=== PATIENT | female | born 1995 | race Caucasian/White ===

== ENCOUNTER 2018-07-16 02:49 | Inpatient (IN) | payer MEDICAID ==
[2018-07-16] MEDS ORDERED: RINGERS SOLUTION,LACTATED 1,000 ML IV PRN (03:04)
[2018-07-16] MEDS ORDERED: OXYTOCIN/NORMAL SALINE 20 UNIT/1,000 ML RTUINJ ONE (03:05)
[2018-07-16] MEDS ORDERED: LIDOCAINE 1% INJ-PF (10 MG/ML) 30 ML SDV ONE (03:05)
[2018-07-16] MEDS ORDERED: MISOPROSTOL 0.2 MG TABLET ONE (03:05)
--- NOTE | 2018-07-16 03:11 | Admission Physical ---
Datetime Report Generated by CPN: 07/16/2018 03:11 CURRENT ADMISSION Chief Complaint: Uterine Contractions Indication for Induction: Not Applicable Admit Impression : Term, Intrauterine ; Active Labor Admit Plan: Admit to Unit; Initiate Labor Protocol ALLERGIES Medication Allergies: No Known Allergies (07/16/2018) OBSTETRICAL HISTORY EDC: 07/16/2018 00:00 : 3 Para: 2 PHYSICAL EXAM General: Normal HEENT: Normal Neurologic: Normal Thyroid: Normal Heart: Normal Lungs: Normal Breast: Normal Back: Normal Abdomen: Normal Genitourinary Exam: Normal Extremities: Normal DTRs: Normal Pelvic Type: Adequate Vital Signs: Reviewed; Within Normal Limits VAGINAL EXAM Dilatation: 9 Effacement: 100 Station: 0 MEMBRANES Pooling: Negative Membranes: Intact FETUS A EGA: 40.0 Monitoring: External US FHR- Baseline: 120 Variability: Moderate 6-25bpm Accelerations: 15X15 Decelerations: None FHR Category: Category I Estimated Weight (gm): 3600 Presentation: Vertex INFORMED CONSENT Signature: with User ID: [email or web address]
[2018-07-16 03:30] LABS: ABSOLUTE EOSINOPHILS # (AUTO) 0.1 10^3/uL (0.0-0.6); ABSOLUTE MONOCYTES (AUTO) 0.5 10^3/uL (0.1-1.4); ABSOLUTE NEUT (AUTO) 4.7 10^3/uL (1.7-8.2); BASOPHILS % (AUTO) 0.4 % (0-2); EOSINOPHILS % (AUTO) 1.5 % (0-6); HEMOGLOBIN 11.7 g/dL (12.0-15.5); LYMPHOCYTES % (AUTO) 27.1 % (13-45); MEAN CORPUSCULAR HEMOGLOBIN 29.7 pg (27.0-33.4); MEAN CORPUSCULAR HGB CONC 33.4 g/dL (32.0-36.0); MEAN CORPUSCULAR VOLUME 89 fl (80-97); MONOCYTES % (AUTO) 7.4 % (3-13); PLATELET COUNT 156 10^3/uL (150-450); RED BLOOD COUNT 3.93 10^6/uL (3.72-5.28); RED CELL DISTRIBUTION WIDTH 15.5 % (11.5-14.0); SEGMENTED NEUTROPHILS % (AUTO) 63.6 % (42-78); TOTAL CELLS COUNTED % (AUTO) 100 %; WHITE BLOOD COUNT 7.4 10^3/uL (4.0-10.5)
[2018-07-16] MEDS ORDERED: NA PHOS,M-B/NA PHOS,DI-BA (ADULT) 133 ML ENEMA PR PRN (03:58)
[2018-07-16] MEDS ORDERED: BENZOCAINE/MENTHOL AEROSOL SPRAY 56 ML TOP PRN (03:58)
[2018-07-16] MEDS ORDERED: GLYCERIN/WITCH HAZEL LEAF 1 EACH MED..PAD TP PRN (03:58)
[2018-07-16] MEDS ORDERED: MAGNESIUM HYDROXIDE SUSP 30 ML UDCUP PO PRN (03:58)
[2018-07-16] MEDS ORDERED: MEASLES,MUMPS&RUBELLA VACC/PF 0.5 ML VIAL SUBCUT PRN (03:58)
[2018-07-16] MEDS ORDERED: DIBUCAINE 1% OINTMENT 28 GM TP PRN (03:58)
[2018-07-16] MEDS ORDERED: PROMETHAZINE HCL INJ 25 MG/1 ML VIAL IV PRN (03:58)
[2018-07-16] MEDS ORDERED: DIPH/PERTUSS(ACELL)/TETANUS VAC/PF 0.5 ML SYR (>=10YO) IM PRN (03:58)
[2018-07-16] MEDS ORDERED: ACETAMINOPHEN WITH CODEINE #3 TABLET PO PRN (03:58)
[2018-07-16] MEDS ORDERED: ACETAMINOPHEN 650 MG SUPP.RECT PR PRN (03:58)
[2018-07-16] MEDS ORDERED: PROMETHAZINE HCL 25 MG TABLET PO PRN (03:58)
[2018-07-16] MEDS ORDERED: OXYTOCIN/NORMAL SALINE 20 UNIT/1,000 ML RTUINJ IV PRN (03:58)
[2018-07-16] MEDS ORDERED: PSEUDOEPHEDRINE HCL 30 MG TABLET PO PRN (03:58)
[2018-07-16] MEDS ORDERED: DIPHENHYDRAMINE HCL 25 MG CAPSULE PO PRN (03:58)
[2018-07-16] MEDS ORDERED: PROMETHAZINE HCL 25 MG SUPP.RECT PR PRN (03:58)
[2018-07-16] MEDS ORDERED: ZOLPIDEM TARTRATE 5 MG TABLET PO PRN (03:58)
[2018-07-16 04:23] LABS: APPEARANCE,URINE SLIGHTLY-CLOUDY; BILIRUBIN,URINE NEGATIVE (NEGATIVE); COLOR,URINE YELLOW; GLUCOSE, URINE NEGATIVE (NEGATIVE); KETONES,URINE NEGATIVE (NEGATIVE); LEUKOCYTE ESTERASE,URINE NEGATIVE (NEGATIVE); NITRITE,URINE NEGATIVE (NEGATIVE); PROTEIN,URINE NEGATIVE (NEGATIVE); URINE SPECIFIC GRAVITY 1.009; UROBILINOGEN,URINE NEGATIVE mg/dL (<2.0)
[2018-07-16 04:37] LABS: URINE AMPHETAMINES SCREEN NEGATIVE; URINE BARBITURATES SCREEN NEGATIVE; URINE BENZODIAZEPINES SCREEN NEGATIVE; URINE COCAINE SCREEN NEGATIVE; URINE MARIJUANA (THC) SCREEN NEGATIVE; URINE METHADONE SCREEN NEGATIVE; URINE PHENCYCLIDINE SCREEN NEGATIVE
--- NOTE | 2018-07-16 06:20 | Delivery Summary ---
Del Sum A-C Datetime Report Generated by CPN: 07/16/2018 06:20 DELIVERY PERSONNEL DELIVERY PERSONNEL: [id number] Delivery Doctor:: Marti Limon MD Labor and Delivery Nurse:: Nemo Gould RNterrazzo layer Nurse:: Parisa Carrasquillo RN Supervisor [employer]/INFANT ROOM TEACHER: Ruthann Green, ST MATERNAL INFORMATION Delivery Anesthesia: None Medications After Delivery: Pitocin Bolus-Please Comment Meds After Delivery Comment: Pitocin 20 Units in 1000 ml NS bolused Estimated Blood Loss (ml): 100 Maternal Complications: Precipitous Labor (<3hrs) LABOR SUMMARY EDC: 07/16/2018 00:00 Attempted: No Labor Anesthesia: None LABOR INFORMATION Reason for Induction: Not Applicable Onset of Labor: 07/16/2018 02:20 Complete Dilatation: 07/16/2018 03:16 Oxytocin: N/A Group B Beta Strep: Negative Steroids Given: None Reason Steroids Not Administered: Not Applicable MEMBRANES Membranes Rupture Method: Artificial Rupture of Membranes: 07/16/2018 03:31 Length of Rupture (hr): 0.15 Amniotic Fluid Color: Clear Amniotic Fluid Amount: Small Amniotic Fluid Odor: Normal STAGES OF LABOR Stage 1 hr: 0 Stage 1 min: 56 Stage 2 hr: 0 Stage 2 min: 24 Stage 3 hr: 0 Stage 3 min: 4 Total Time in Labor hr: 1 Total Time in Labor min: 24 VAGINAL DELIVERY Episiotomy: None Laceration #1: None Laceration Extension #1: N/A Laceration Repair: Not Applicable Sponge Count Correct: N/A Sharps Count Correct: N/A CSECTION DELIVERY Primary Indication: N/A Secondary Indication: N/A CSection Incidence: N/A Labor: N/A Elective: N/A CSection Incision: N/A BABY A INFORMATION Delivery Date/Time: 07/16/2018 03:40 Method of Delivery: Vaginal Born in Route : No : N/A Forceps: N/A Vacuum Extraction: N/A Shoulder Dystocia : No PRESENTATION/POSITION BABY A Presentation: Cephalic Cephalic Presentation: Vertex Vertex Position: Left Occipital Anterior Breech Presentation: N/A PLACENTA INFORMATION BABY A Placenta Delivery Time : 07/16/2018 03:44 Placenta Method of Delivery: Spontaneous Placenta Status: Delivered SCORES BABY A Heart Rate 1 min: >100 bpm Resp Effort 1 min: Good Cry Reflex Irritability 1 min: Cough or Sneeze or Pulls Away Muscle Tone 1 min: Active Motion Color 1 min: Body [place], Extremities Blue Resuscitation Effort 1 min: Tactile Stimulation SCORE 1 MIN: 9 Heart Rate 5 min: >100 bpm Resp Effort 5 min: Good Cry Reflex Irritability 5 min: Cough or Sneeze or Pulls Away Muscle Tone 5 min: Active Motion Color 5 min: Body [place], Extremities Blue Resuscitation Effort 5 min: Tactile Stimulation SCORE 5 MIN: 9 INFANT INFORMATION BABY A Gestational Age at Delivery: 40.0 Gestational Status: Full Term- 39- 40.6 Weeks Infant Outcome : Liveborn Condition : Stable Infant Sex: Female IDENTIFICATION BABY A Verification Date/Time: 07/16/2018 04:11 ID Band Number: [id number] Mother's Name Verified: Yes Infant RN Verifying Infant: M DEBORA RN, K. Glenn RN WEIGHT/LENGTH BABY A Infant Birthweight (gm): 3585 Weight (lb): 7 Weight (oz): 14 Infant Length (in): 20.00 Infant Length (cm): 50.80 CORD INFORMATION BABY A No. Cord Vessels: 3 Nuchal Cord : N/A Cord Blood Taken: Yes-For Storage (Mom's Blood type +) Suction: None ASSESSMENT BABY A Infant Complications: None Physical Findings at Delivery: Within Normal Limits Infant Respirations: Appears Normal Skin to Skin: No Work Car Operator/ALS Called : No Care By: NDkirille RN Transferred To: Remains with Mother BABY B INFORMATION : N/A SIGNATURES Signature: with User ID: [email or web address]
[2018-07-16] MEDS: IBUPROFEN 800 MG TABLET PO SCH ×3 (11:29→21:46)
[2018-07-16] MEDS: PRENATAL VITAMIN W DHA CAPSULE PO SCH (11:30)
[2018-07-16] MEDS: FERROUS SULFATE 325 MG TABLET PO SCH ×2 (11:30→17:59)
[2018-07-16] MEDS: DOCUSATE SODIUM 100 MG CAPSULE PO SCH ×2 (11:30→17:59)
[2018-07-16] MEDS: SENNOSIDES/DOCUSATE 8.6-50 MG 1 EACH TABLET PO SCH (11:31)
[2018-07-16] MEDS: FAMOTIDINE 20 MG TABLET PO SCH ×2 (11:31→21:46)
[2018-07-16] MEDS: ACETAMINOPHEN WITH CODEINE #3 TABLET PO PRN (11:36)
[2018-07-17] MEDS: IBUPROFEN 800 MG TABLET PO SCH ×2 (05:21→13:44)
[2018-07-17 07:41] LABS: HEMATOCRIT 34.6 % (36.0-47.0); HEMOGLOBIN 11.6 g/dL (12.0-15.5); MEAN CORPUSCULAR HEMOGLOBIN 30.1 pg (27.0-33.4); MEAN CORPUSCULAR HGB CONC 33.5 g/dL (32.0-36.0); MEAN CORPUSCULAR VOLUME 90 fl (80-97); PLATELET COUNT 154 10^3/uL (150-450); RED BLOOD COUNT 3.84 10^6/uL (3.72-5.28); WHITE BLOOD COUNT 8.3 10^3/uL (4.0-10.5)
[2018-07-17] MEDS: FERROUS SULFATE 325 MG TABLET PO SCH ×2 (09:21→17:33)
[2018-07-17] MEDS: FAMOTIDINE 20 MG TABLET PO SCH (09:21)
[2018-07-17] MEDS: PRENATAL VITAMIN W DHA CAPSULE PO SCH (09:21)
[2018-07-17] MEDS: DOCUSATE SODIUM 100 MG CAPSULE PO SCH ×2 (09:21→17:33)
[2018-07-17] MEDS: SENNOSIDES/DOCUSATE 8.6-50 MG 1 EACH TABLET PO SCH (09:21)
[2018-07-17 10:04] VITALS: BP 105/68
[2018-07-17] MEDS: ACETAMINOPHEN WITH CODEINE #3 TABLET PO PRN (12:20)
--- NOTE | 2018-07-17 12:35 | PDOC DISCHARGE SUMMARY ---
Final Diagnosis Discharge Date: 07/17/18 - Final Diagnosis (1) Normal vaginal delivery Is this a current diagnosis for this admission?: Yes Discharge Data - Discharge Medication Prescriptions: Ibuprofen [Motrin 800 mg Tablet] 800 mg PO Q8HP PRN #60 tablet PRN Reason: Home Medications: Pnv No.95/Ferrous Fum/Folic AC [ Vitamin Tablet] 1 tab PO DAILY Ibuprofen [Motrin 800 mg Tablet] 800 mg PO Q8HP PRN #60 tablet 07/17/18 Procedures: NST Intrapartum Procedure(s): Spontaneous Vaginal Delivery - Diagnosis Test Laboratory: Temp Pulse Resp BP Pulse Ox 98.2 F 58 L 18 105/68 100 07/17/18 07:32 07/17/18 07:32 07/17/18 07:32 07/17/18 07:32 07/17/18 07:32 07/16/18 07/16/18 07/17/18 03:00 03:15 06:46 RBC 3.93 3.84 Hgb 11.7 L 11.6 L Hct 35.0 L 34.6 L Urine Opiates Screen NEGATIVE - Discharge information/Instructions Discharge Activity: Balance Activity w/Rest, Pelvic Rest Discharge Diet: Regular Disposition: HOME, SELF-CARE Follow up with: [facility] in: 4, Weeks
--- NOTE | 2018-07-17 12:37 | PDOC PROGRESS REPORT ---
Subjective-OB Progress Note for:: 07/17/18 Subjective: reports bleeding slowing, pain controlled with ibuprofen, denies needs, agrees with plan for discharge today Physical Exam (OB) Vital Signs: Temp Pulse Resp BP Pulse Ox 98.2 F 58 L 18 105/68 100 07/17/18 07:32 07/17/18 07:32 07/17/18 07:32 07/17/18 07:32 07/17/18 07:32 Intake & Output 07/16/18 07/17/18 07/18/18 06:59 06:59 06:59 Intake Total 1000 Balance 1000 Weight 72.6 kg - Abdomen Description: Soft, Round Hernia Present: No Fundal Description: Firm, Midline Fundal Height: u/u - u/2 - Abdominal Inspection: Normal Distension: No distension Tenderness: Nontender - Extremities Lower extremities: Aliyah's sign - neg Calf: Normal, Nontender Objective-Diagnostic Laboratory: 07/17/18 06:46 07/17/18 06:46 WBC 8.3 RBC 3.84 Hgb 11.6 L Hct 34.6 L MCV 90 MCH 30.1 MCHC 33.5 RDW 15.0 H Plt Count 154 Assessment and Plan(PN) - Assessment and Plan (1) Normal vaginal delivery Is this a current diagnosis for this admission?: Yes - Time Spent with Patient Time with patient: Less than 15 minutes Medications reviewed and adjusted accordingly: Yes - Disposition Anticipated Discharge: Home - today
== END 2018-07-17 19:36 | disposition home or self-care (01) | DRG 775 ==
LOC: LC 02:49 → LR 03:08 → 2N 09:00
PROVIDERS: ADMIT Obstetrics & Gynecology; ATTEND Obstetrics & Gynecology
PROC: 10E0XZZ Delivery of Products of Conception, External Approach (ICD-10-PCS; principal; 2018-07-16)
PROC: 4A1HXCZ Monitoring of Products of Conception, Cardiac Rate, External Approach (ICD-10-PCS; 2018-07-16)
DX: O62.3 Precipitate labor (principal); Z3A.40 40 weeks gestation of pregnancy; Z37.0 Single live birth
CPT/HCPCS: 36415; 80307; 81005; 85025; 85027; 86592; 86850; 86900; 86901; J2590; J3490